=== PATIENT | female | born 1975 | race Caucasian/White ===

== ENCOUNTER 2016-08-23 02:03 | Emergency (ER) | payer MEDICAID ==
[2016-08-23 02:15] VITALS: BMI 33.3
[2016-08-23 02:18] VITALS: RESP 18; TEMP 97.7
--- NOTE | 2016-08-23 02:28 | ED PDOC ---
Arrival/HPI - General Chief Complaint: Abdominal Pain Time Seen by Provider: 08/23/16 02:09 Historian: Patient - History of Present Illness Narrative History of Present Illness (Text): 08/23/16 02:25 Amanda Cagle is a 40 year old female, with no significant past medical history, presents to the emergency department complaining of 2 day duration of intermittent epigastric abdominal pain radiating to mid back. States that pain presented around mid-night yesterday which resolved around 4 a.m. Reports she experienced similar quality pain tonight post dinner around same time. Denies fever, chills, chest pain, difficulty breathing, nausea, vomiting, diarrhea, urinary symptoms, or any other complaints at this time. Time/Duration: < week (2 days ) Symptom Onset: Gradual Symptom Course: Intermittent Severity Level: Mild Activities at Onset: Light Context: Home Past Medical History - Provider Review Nursing Documentation Reviewed: Yes - Psychiatric Hx Substance Use: No Family/Social History - Physician Review Nursing Documentation Reviewed: Yes Family/Social History: No Known Family HX Smoking Status: Current Some Days Smoker Hx Alcohol Use: No Hx Substance Use: No Allergies/Home Meds Allergies/Adverse Reactions: Allergies No Known Allergies Allergy (Verified 08/23/16 02:14) Review of Systems - Physician Review All systems were reviewed & negative as marked: Yes - Review of Systems Constitutional: Normal. absent: Fatigue, Fevers Respiratory: Normal. absent: SOB, Cough Cardiovascular: Normal. absent: Chest Pain Gastrointestinal: Abdominal Pain (epigastric ). absent: Diarrhea, Nausea, Vomiting Musculoskeletal: Back Pain Neurological: Normal. absent: Headache, Dizziness Psychiatric: Normal Physical Exam Vital Signs Reviewed: Yes Vital Signs Temp Pulse Resp BP Pulse Ox 08/23/16 04:38 78 18 122/73 98 08/23/16 02:15 97.7 F 83 18 161/90 H 100 Temperature: Afebrile Blood Pressure: Hypertensive Pulse: Regular Respiratory Rate: Normal Appearance: Positive for: Well-Appearing, Non-Toxic, Comfortable Pain Distress: None Mental Status: Positive for: Alert and Oriented X 3 - Systems Exam Head: Present: Atraumatic, Normocephalic Pupils: Present: PERRL Conjunctiva: Present: Normal Respiratory/Chest: Present: Clear to Auscultation, Good Air Exchange. No: Respiratory Distress, Accessory Muscle Use Cardiovascular: Present: Regular Rate and Rhythm, Normal S1, S2. No: Murmurs Abdomen: Present: Tenderness (RUQ tenderness ), Normal Bowel Sounds. No: Distention, Peritoneal Signs Back: Present: Normal Inspection. No: CVA Tenderness, Midline Tenderness, Paraspinal Tenderness Upper Extremity: Present: Normal Inspection. No: Cyanosis, Edema Lower Extremity: Present: Normal Inspection. No: Edema Neurological: Present: GCS=15, CN II-XII Intact, Speech Normal, Motor Func Grossly Intact, Normal Sensory Function Skin: Present: Warm, Dry, Normal Color. No: Rashes Psychiatric: Present: Alert, Oriented x 3, Normal Insight, Normal Concentration Medical Decision Making ED Course and Treatment: 08/23/16 03:28 EKG interpreted by me: NSR @ 75 bpm. Normal axis. No ischemic changes. 08/23/16 04:27 US Abdomen Limited, Right Upper Quadrant results reviewed: FINDINGS: Liver: Enlarged, 19.2 cm. Fatty infiltration. No mass. No intrahepatic ductal dilatation. Gallbladder: Gallstones. No wall thickening. No pericholecystic fluid. No sonographic Parker's sign. Common bile duct: No dilatation. No stones. Pancreas: Unremarkable as visualized. Right kidney: Normal echogenicity. No hydronephrosis. IMPRESSION: 1. Cholelithiasis. 2. Incidental/non-acute findings are described above. 08/23/16 04:37 Patient states she feels much better now and pain has resolved completely. Patient now recollects that she had similar quality pain last november after eating. She was seen by her PMD at that time and was advised to follow up with a surgeon, but she did not. Patient is stable for discharge. Advised to followup with PMD within few days and present to emergency department for worsening symptoms. - Lab Interpretations Lab Results: 08/23/16 02:30 08/23/16 02:30 Lab Results 08/23/16 02:45: Urine HCG, Qual Negative 08/23/16 02:45: Urine Color Yellow, Urine Appearance Clear, Urine pH 6.0, Ur Specific [place] <= 1.005, Urine Protein Negative, Urine Glucose (UA) Negative, Urine Ketones Negative, Urine Blood Moderate H, Urine Nitrate Negative, Urine Bilirubin Negative, Urine Urobilinogen 0.2, Ur Leukocyte Esterase Negative, Urine RBC 5 - 10, Urine WBC 2 - 5, Ur Epithelial Cells 6 - 8, Urine Bacteria Trace 08/23/16 02:30: Sodium 141, Potassium 4.0, Chloride 104, Carbon Dioxide 25, Anion Gap 16, BUN 11, Creatinine 0.6, Est GFR ( Amer) > 60, Est GFR (Non- Af Amer) > 60, Random Glucose 117 H, Calcium 9.6, Total Bilirubin 0.4, AST 24, ALT 28, Alkaline Phosphatase 69, Troponin I < 0.01, Total Protein 8.0, Albumin 4.4, Globulin 3.6, Albumin/Globulin Ratio 1.2, Lipase 160 08/23/16 02:30: WBC 7.9, RBC 4.51, Hgb 12.2, Hct 37.9, MCV 84.0, MCH 27.1, MCHC 32.2, RDW 13.0, Plt Count 261, MPV 10.6, Gran % 65.4, Lymph % (Auto) 26.2, [place] % (Auto) 6.2 H, Eos % (Auto) 1.9, Baso % (Auto) 0.3, Gran # 5.16, Lymph # 2.1, [place] # 0.5, Eos # 0.2, Baso # 0.02 - RAD Interpretation Radiology Orders: 08/23/16 02:35 GALLBLADDER & COMMON DUCT [US] Stat - Medication Orders Current Medication Orders: Discontinued Medications Ketorolac Tromethamine (Toradol) 10 mg IVP STAT STA Stop: 08/23/16 03:29 Last Admin: 08/23/16 03:37 Dose: 10 mg Morphine Sulfate (Morphine) 4 mg IVP ONCE PRN PRN Reason: Pain, severe (8-10) - Scribe Statement The provider has reviewed the documentation as recorded by the Alyce Ridley Provider Attestation: All medical record entries made by the Evaibcorinne were at my direction and personally dictated by me. I have reviewed the chart and agree that the record accurately reflects my personal performance of the history, physical exam, medical decision making, and the department course for this patient. I have also personally directed, reviewed, and agree with the discharge instructions and disposition. Disposition/Present on Arrival - Present on Arrival Any Indicators Present on Arrival: No History of DVT/PE: No History of Uncontrolled Diabetes: No Urinary Catheter: No History of Decub. Ulcer: No History Surgical Site Infection Following: None - Disposition Have Diagnosis and Disposition been Completed?: Yes Diagnosis: Biliary colic Disposition: HOME/ ROUTINE Disposition Time: 04:37 Condition: IMPROVED Discharge Instructions (ExitCare): Biliary Colic (ED), Gallstones (ED) Additional Instructions: Please follow up with your doctor today. Return to the ER for any worsening symptoms, severe pain, fever, repeated vomiting, change in skin color, or for any other concerns. Prescriptions: Naproxen 500 mg PO Q12H PRN #9 tab PRN Reason: Pain, Moderate (4-7) Referrals: Jerson Null MD [Family Provider] - Follow up with primary
[2016-08-23 02:47] LABS: ADD MANUAL DIFF? NO
[2016-08-23 02:53] LABS: BASO # 0.02 K/mm3 (0.0-2.0); BASO % 0.3 % (0.0-3.0); EOS # 0.2 (0.0-0.7); EOS % 1.9 % (1.5-5.0); GRAN # 5.16 (1.4-6.5); GRAN % 65.4 % (50.0-68.0); HEMATOCRIT 37.9 % (36.0-48.0); LYMPH # 2.1 (1.2-3.4); LYMPH % 26.2 % (22.0-35.0); MEAN CORPUSCULAR HEMOGLOBIN 27.1 pg (25.0-35.0); MEAN CORPUSCULAR HGB CONC 32.2 g/dl (31.0-37.0); MEAN PLATELET VOLUME 10.6 fl (7.0-11.0); MONO # 0.5 (0.1-0.6); MONO % 6.2 % (1.0-6.0); PLATELET COUNT 261 10^3/uL (120.0-450.0); WHITE BLOOD COUNT 7.9 10^3/ul (4.5-11.0)
[2016-08-23 02:56] LABS: ALB/GLOB RATIO 1.2 (1.1-1.8); ALKALINE PHOSPHATASE 69 U/L (38-133); ALT/SGPT 28 U/L (7-56); AST/SGOT 24 U/L (15-39); BILIRUBIN,TOTAL 0.4 mg/dL (0.2-1.3); BLOOD UREA NITROGEN 11 mg/dL (7-21); CALCIUM 9.6 mg/dL (8.4-10.5); CARBON DIOXIDE 25 mmol/L (21-33); CHLORIDE 104 mmol/L (98-107); GFR AFRICAN-AMERICAN > 60; GLUCOSE,RANDOM 117 mg/dL (70-110); LIPASE 160 U/L (23-300); SODIUM 141 mmol/L (132-148)
[2016-08-23 03:08] LABS: URINE BILIRUBIN NEGATIVE (NEGATIVE); URINE BLOOD MODERATE (NEGATIVE); URINE GLUCOSE (UA) NEGATIVE (NEGATIVE); URINE KETONE NEGATIVE (NEGATIVE); URINE LEUKOCYTE ESTERASE NEGATIVE Leu/uL (NEGATIVE); URINE PROTEIN NEGATIVE mg/dL (<30 mg/dL); URINE UROBILINOGEN 0.2 E.U./dL (<1 E.U./dL)
[2016-08-23 03:14] LABS: URINE COLOR YELLOW (YELLOW)
[2016-08-23 03:15] LABS: URINE APPEARANCE CLEAR (CLEAR); URINE BACTERIA TRACE (NEG)
[2016-08-23] MEDS ORDERED: Morphine 4 mg/ml ISec IVP PRN (03:29)
[2016-08-23 03:38] LABS: TROPONIN I < 0.01 ng/mL
--- NOTE | 2016-08-23 04:26 | US ---
EXAM: US Abdomen Limited, Right Upper Quadrant CLINICAL HISTORY: 40 years old, female; Pain; Abdominal pain; Generalized; Additional info: Ruq pain TECHNIQUE: Real-time ultrasound of the right upper quadrant with image documentation. COMPARISON: US - ABDOMEN 12/23/2011 11:12:14 AM FINDINGS: Liver: Enlarged, 19.2 cm. Fatty infiltration. No mass. No intrahepatic ductal dilatation. Gallbladder: Gallstones. No wall thickening. No pericholecystic fluid. No sonographic Parker's sign. Common bile duct: No dilatation. No stones. Pancreas: Unremarkable as visualized. Right kidney: Normal echogenicity. No hydronephrosis. IMPRESSION: 1. Cholelithiasis. 2. Incidental/non-acute findings are described above.
[2016-08-23 04:38] VITALS: BP 122/73; PULSE 78; O2SAT 98
--- NOTE | 2016-08-23 09:09 | CARD ---
APPROVED REPORT EKG Measurement Heart [id number] <Conclusion> Normal sinus rhythm Normal ECG
== END 2016-08-23 04:46 | disposition home or self-care (01) ==
LOC: ED 02:03
DX: R10.13 Epigastric pain (principal); K80.50 Calculus of bile duct without cholangitis or cholecystitis without obstruction; F17.210 Nicotine dependence, cigarettes, uncomplicated
CPT/HCPCS: 76705; 80053; 81001; 83690; 84484; 84703; 85025; 93005; 96374; 99284; J1885

== ENCOUNTER 2018-06-13 11:04 | Outpatient (CLI) | payer MEDICAID | END 2018-06-13 11:05 | disposition home or self-care (01) | LOC: RAD 11:04 ==